=== PATIENT | female | born 1965 | race American Indian/Alaskan Native ===

== ENCOUNTER 2016-06-19 08:40 | Outpatient (CLI) | payer OTHER ==
--- NOTE | 2016-06-19 13:42 | Mammography Report ---
BONE DEXA:06/19/16 08:40:00 CLINICAL: Postmenopausal. No comparison. TECHNIQUE: Two site bone DEXA performed on an Hologic scanner. FINDINGS: The average BMD of the lumbar spine L1-L4 is 0.798g/cm squared with a T-score of -3.2 and a Z-score of -2.1. The average BMD of the left hip is 0.746g/cm squared with a T-score of -1.8 and a Z-score of -1.4. IMPRESSION: 1. WHO classification: Osteoporosis with high fracture risk based on lumbar spine measurements. 2. WHO classification: Osteopenia with increased fracture risk based on left hip measurements. RECOMMENDATION: Clinical correlation and routine screening. DEFINITIONS: BMD = Bone Mineral Density T-score = BMD related to mean peak bone mass of young adult (mean expressed in Standard Deviation) Z-score = Age matched BMD expressed in SD World Health Organization (WHO) Diagnostic Criteria Normal T-score > -1 SD Osteopenia T-score between -1 and -2.4 SD Osteoporosis T-score -2.5 SD or below NOTE: BMD is not the only risk factor for fracture. One should also consider factors such as the patient's age, risk of falling, previous osteoporotic fracture, family history of osteoporotic fractures, current smoker, and low body weight. Z-scores are not calculated if >80 years of age.
== END 2016-06-19 08:41 | disposition home or self-care (01) ==
LOC: SPVWC 08:40
PROVIDERS: ATTEND Internal Medicine Hematology & Oncology
DX: M81.0 Age-related osteoporosis without current pathological fracture (principal); C50.311 Malignant neoplasm of lower-inner quadrant of right female breast; M85.88 Other specified disorders of bone density and structure, other site; Z78.0 Asymptomatic menopausal state
CPT/HCPCS: 77080

== ENCOUNTER 2017-01-29 07:07 | Outpatient (CLI) | payer OTHER ==
--- NOTE | 2017-01-29 12:51 | PET Report ---
PET SB TO MT INITIAL: HISTORY: Right breast cancer. TECHNIQUE: 11.2 millicuries F-18 FDG was administered intravenously. Noncontrast CT images and PET images were obtained from the skull base to the proximal thighs. Fused images were reviewed on a workstation. The patient's blood glucose level measured 95. COMPARISON: 03/22/15. FINDINGS: BRAIN: physiologic FDG uptake in the imaged brain. NECK: physiologic FDG uptake. CHEST WALL: Bilateral breast prostheses are intact. No recurrent chest wall mass. MEDIASTINUM: physiologic FDG uptake. LUNGS: There is a new right upper lobe mass measuring 2.1 x 1.5 cm with max SUV measuring 4.6. The remainder of the lungs are clear. No infiltrate or pleural effusion. PLEURA/PERICARDIUM: physiologic FDG uptake. THORACIC LYMPH NODES: physiologic FDG uptake. HEPATOBILIARY: physiologic FDG uptake. Mean liver SUV measures 2.7. PANCREAS: physiologic FDG uptake. SPLEEN: physiologic FDG uptake. ADRENAL GLANDS: physiologic FDG uptake. KIDNEYS/RENAL COLLECTING SYSTEMS: physiologic FDG uptake. Solitary 3 mm renal stone in the inferior left kidney is noted. BOWEL/MESENTERY: physiologic FDG uptake. PELVIC VISCERA: physiologic FDG uptake. ABDOMINAL/PELVIC LYMPH NODES: physiologic FDG uptake. MUSCULOSKELETAL: physiologic FDG uptake. IMPRESSION: A new 2.1 x 1.5 cm hypermetabolic mass is identified in the right upper lobe consistent with disease recurrence/metastasis. No additional areas of abnormal uptake on PET are identified.
== END 2017-01-29 07:08 | disposition home or self-care (01) ==
LOC: PET 07:07
PROVIDERS: ATTEND Internal Medicine Hematology & Oncology
DX: C50.311 Malignant neoplasm of lower-inner quadrant of right female breast (principal); R91.8 Other nonspecific abnormal finding of lung field; N20.0 Calculus of kidney; R53.83 Other fatigue; Z98.82 Breast implant status
CPT/HCPCS: 78815; 82962; A9552